=== PATIENT | male | born 1960 | race Caucasian/White ===

== ENCOUNTER 2017-05-20 01:14 | Inpatient (IN) | payer OTHER ==
[~2017-05-20] VITALS: Ht 179.1 cm; Wt 104.3 kg
--- NOTE | ~2017-05-20 | CO ---
Unit #: [id number] #: [id number] Patient: CHANTELLE ANDREWS [id number] [facility] [address] [facility]. [place], [place] [address] [id number] MR#: [id number] NAME: CHANTELLE ANDREWS. ROOM: 553 Age: 56 Sex: M Admission Date: 05/20/2017 : 1960 Attending Physician: Marvin Grijalva M.D. Primary Care Physician: Brian Alexander M.D. Consultation Date: 05/20/2017 CONSULTATION REPORT His hospice social worker, he states, is now Dr. Hector barry at [facility]. REASON FOR CONSULTATION Chest pain. HISTORY OF PRESENT ILLNESS This is a 56-year-old white male with multiple medical issues including ischemic cardiopathy with an EF as low at 30% to 35% and he had a recent PCI and stent in March of 2017 at [facility]. He also is a diabetic, hypertension, hyperlipidemia, chronic kidney disease, COPD, recently quit smoking and has a left below the knee amputation secondary to nonhealing wounds. According to patient he has a right lower extremity, was getting more red, swollen and painful. He had some recent ulcerations on that extremity. He said he has seen this condition in the past and knew he should come in for further evaluation and management. He has been having complaints of intermittent left anterior chest wall pain. Sometimes it radiates up into the left shoulder. He said he does get a little short of air, lightheaded and weak. He says he has taken a Nitrostat at home and it does ease it off. He says it just lasts for a few minutes. The patient will be admitted for right lower extremity cellulitis, started on antibiotics and also he was found to have a blood sugar of 386. Cardiology has been consulted to assist with evaluation and management. PAST MEDICAL HISTORY 1. Ischemic cardiomyopathy. His last echo here at [facility], 10/2015, showed LVEF of 35% with moderate to severe left ventricular systolic dysfunction and moderate to severe global hypokinesis. 2. 04/10/2017 Lexiscan Cardiolite stress test at [facility] has showed EF of 42% and there showed some medium to large segment and moderate to severe apical mid and basal inferior lateral ischemia. 3. Cardiac cath performed on 04/13/2017, which revealed a circumflex that appears to have a severe stenosis in the distal circumflex at the takeoff of the PLV branch and then has a 40% stenosis between the first and second marginal branch. The LAD has a 50% to 60% stenosis at the diagonal branch and also 30% to 40% stenosis in the mid LAD. The rest of the LAD had luminal irregularities. 4. Status post PCI and drug-eluting stent to the left PLV branch of the circumflex. 5. Hypertension. 6. Hyperlipidemia. 7. Chronic kidney disease. 8. Diabetes mellitus type 2. 9. COPD. Unit #: [id number] #: [id number] Patient: CHANTELLE ANDREWS 10. Intolerant to Brilinta, causes shortness of breath. 11. History of toxic metabolic encephalopathy. 12. Peripheral neuropathy. 13. Left BKA secondary to nonhealing wound, second to diabetes mellitus. 14. Quit smoking about a month ago. PAST SURGICAL HISTORY 1. Below left knee amputation. 2. Colonoscopy. 3. Hand surgery. HOME MEDICATIONS 1. Duloxetine 60 mg p.o. daily. 2. Effient 10 mg p.o. daily. 3. Gabapentin 800 mg p.o. 3 times daily. 4. Mag ox 400 mg p.o. daily. 5. Metoprolol 25 mg p.o. twice daily. 6. Omeprazole 20 mg p.o. daily. 7. Quetiapine 100 mg p.o. at bedtime. 8. Flomax 0.4 mg p.o. daily. 9. Tresiba FlexTouch 38 units subcu daily. 10. Ventolin 1 inhalation p.r.n. for shortness of breath. 11. Xanax 0.5 mg. p.o. twice daily p.r.n. 12. Breo Ellipta 1 puff inhalation twice daily. 13. Amitriptyline 50 mg p.o. twice daily. 14. Aspirin 81 mg daily. 15. Atorvastatin 80 mg p.o. daily. 16. Bumex 2 mg p.o. twice daily. 17. Clonazepam 0.5 mg p.o. twice daily ALLERGIES No known drug allergies. SOCIAL HISTORY The patient lives with his sister. He uses a wheelchair. He has a prosthesis. He quit smoking about a month ago. According to his information he has been smoking most of his adult life. No alcohol except on a rare basis. FAMILY HISTORY Noncontributory. REVIEW OF SYSTEMS See details in HPI. PHYSICAL EXAMINATION GENERAL: The patient is a 56-year-old white male in no acute respiratory disease. He is awake, alert and oriented. VITAL SIGNS: Blood pressure is 158/86, respirations 22, pulse 92, temperature 97.9, O2 sats 97% on room air. NECK: Trachea midline. No thyromegaly, lymphadenopathy. Normal carotid upstrokes. No jugular venous distention. HEART: S1 and S2. Regular rate and rhythm. No clicks, murmurs or rubs. LUNGS: Diminished and otherwise clear. ABDOMEN: Slight obese, soft nontender, positive bowel sounds present. EXTREMITIES: Right pedal pulses are palpable. 1+ pedal edema and noted cellulitis in the left lower extremity with some open ulcerated areas. Unit #: [id number] #: [id number] Patient: CHANTELLE ANDREWS DIAGNOSTIC STUDIES LABORATORY DIAGNOSTIC DATA: Glucose is 386, BUN 39, creatinine 1.8, EGFR 41.2, sodium 132, potassium 5.0, chloride 100, CO2 26, calcium 3.2, total protein 7.4, albumin 2.7, bili total 0.5, AST 19, ALT 20, alk phos is 107. WBC is 8.0, hemoglobin 13.6, hematocrit 40.4, and platelets 194. Initial cardiac enzymes - CK-MB is 7.5, troponin less than 0.05, CK-MB is 5.9, troponin less than 0.5, INR 1.0. Repeat cardiac enzymes - troponin less than 0.03, BNP 609. IMAGING STUDIES: Chest x-ray shows stable cardiomegaly, stable chronic bibasilar scarring and nothing acute. CARDIOLOGY STUDIES: EKG shows sinus rhythm with a first degree AV block, some nonspecific ST-T wave abnormalities in lateral leads, otherwise slightly unremarkable. IMPRESSION 1. Right lower extremity cellulitis. 2. Chest pain, somewhat atypical. 3. History of coronary artery disease, recent PCI and stent to the PLV branch of the left circumflex. 4. History of ischemic cardiomyopathy, EF of 35% on last stress test. On last documentation at [facility] it is 42%. 5. Diabetes mellitus type 2, poorly controlled. 6. Hypertension. 7. Hyperlipidemia. 8. Chronic kidney disease. 9. Chronic obstructive pulmonary disease. 10. Peripheral neuropathy. 11. Left below knee amputation for nonhealing wounds. 12. Recently quit smoking. PLANS 1. Continue to monitor cardiac enzymes and EKG. So far they are negative. His chest pain is intermittent and only lasts a few seconds each episode. He says it is usually waxing and waning. It is somewhat atypical; however, with his multiple medical issues and recent cardiac enzymes, will monitor closely. Will optimize his medications and make sure he continues on his metoprolol, Effient and aspirin and statin and he is on oral Bumex. He does not appear to have any acute congestive heart failure. Will continue on oral medications. Will watch closely his BUN and creatinine. Patient currently is not on an DIEGO inhibitor or ARB for his cardiomyopathy because of his acute on chronic kidney failure. 2. Will obtain some records from [facility], including the last echo and discharge summary. 3. Further recommendation pending per Dr. Cervantes. Thank you very much for allowing us to assist in care. Patient does want to followup with his current hospice social worker at [facility], which according to their records is Dr. Young. Dictated by... Heather XavierPShawnRDavy for Ambreen Cervantes M.D. Unit #: [id number] #: [id number] Patient: CHANTELLE ANDREWS ABDELRAHMAN/jennifer TD: 05/23/2017 05:50 JOB #: [id number] CC: [facility] CONSULTATION REPORT Page 1 of 1 X Machelle Woods APRN CONSULTATION REPORT
--- NOTE | ~2017-05-20 | EKG ---
PATIENT: CHANTELLE ANDREWS UNIT #: [id number] Ventricular Rate: 96 BPM Atrial Rate: 96 BPM P-R Interval: 228 ms QRS Duration: 74 ms Q-T Interval: 368 ms QTC Calculation(Bezet): 464 ms P Merritt: 24 degrees Calculated R Merritt: -18 degrees Calculated T Merritt: 158 degrees Diagnosis Line: Sinus rhythm with 1st degree A-V block Diagnosis Line: ST and T wave abnormality, consider lateral ischemia Diagnosis Line: Prolonged QT Diagnosis Line: Poor data quality Diagnosis Line: Abnormal ECG Diagnosis Line: When compared with ECG of 15-JUN-2016 19:34, Diagnosis Line: Inverted T waves have replaced nonspecific T wave Diagnosis Line: abnormality in Lateral leads Diagnosis Line: Confirmed by CLOVIS GUY MD ([id number]) on 05/21/2017 Diagnosis Line: 8:27:17 AM INTERPRETING MD: BROOKS CHOWDARY
--- NOTE | ~2017-05-20 | CR72 ---
[facility] RADIOLOGY TEXT RESULTS PATIENT: CHANTELLE ANDREWS LOCATION: [place] [address] : [birth year] UNIT #: [id number] AGE: [address]: LÁZARO FERRARIUJ V SEX: M ORDER DR: [id number] [facility] [address] [facility]. [place], [place] [address] [id number] MR#: [id number] Acc #: [id number] NAME: CHANTELLE ANDREWS. : 1960 SEX: M STUDY DATE/TIME: 05/20/2017 1:46 UNIT: JOSIE ROOM: STUDY DESCRIPTION: CR Chest Single View Portable Attending Physician: Ryan Wallace D.O. Ordering Physician: Ryan Wallace D.O. Primary Care Physician: Brian Alexander M.D. MEDICAL IMAGING REPORT This report is preliminary unless electronic signature is present EXAM AP portable chest DATE 05/20/2017 HISTORY Shortness of breath, chest pain, cough and right leg pain since yesterday. Smoking history for years. COMPARISON AP portable chest 06/15/2016. FINDINGS Chronic band-like scarring is present within the lung bases. No acute airspace disease is seen. Stable cardiac enlargement. No pleural effusion or pneumothorax. IMPRESSION 1. Stable chronic bibasilar scarring. 2. Stable cardiomegaly. 3. No acute findings or significant change compared to 06/15/2016. Dictated by... Lynn Rosa M.D. THIS IS AN ELECTRONICALLY VERIFIED REPORT Lynn Rosa M.D. at 05/23/2017 8:41 AM [facility]/matthew TD: 05/20/2017 04:20 JOB #: [id number] [facility] RADIOLOGY TEXT RESULTS PATIENT: CHANTELLE ANDREWS LOCATION: [facility] [address] : 60 UNIT #: [id number] AGE: [address]: CHARITY FERRARI V SEX: M ORDER DR: MEDICAL IMAGING REPORT Page 1 of 1 COPY
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
[~2017-05-20 01:14] MED LIST: ACETAMINOPHEN650 M4 PO; ALBUTEROL17 GM INH; ALDACTONE25 MG PO; AMITRIPTYLINE H25 MG PO; ASPIRIN81 MG PO; ATIVAN0.5 M1 PO; ATIVAN2 MG PO; BACTROBAN22 GM TOP; BUMEX PO; BUSPAR PO; CARVEDILOL25 MG PO; CLOBETASOL PROP30 GM EXT; COREG PO; COREG6.25 MG PO; COZAAR25 MG PO; CYANOCOBALAM1000 MCG PO; DOXYCYCLINE HY100 M3 PO; DULOXETINE HCL60 M1 PO; FINASTERIDE5 MG PO; FLOMAX0.4 M1 PO; FUROSEMIDE40 MG PO; GABAPENTIN800 MG PO; HUMALOG100 U/M2 SUBQ; HYDRALAZINE HCL25 MG PO; LANTUS100 U/ML SUBQ; LANTUS100 UNITS/ SUBQ; LASIX PO; LIPITOR PO; LIPITOR80 MG PO; LISINOPRIL20 MG PO; METOLAZONE5 MG PO; NASALIDE INHALE25 ML; NEURONTIN800 MG PO; OMEPRAZOLE20 M2 PO; PRILOSEC20 M1 PO; QUETIAPINE FUM100 MG PO; SERTRALINE HCL100 M1 PO; SODIUM BICARBO650 MG PO; SODIUM BICARBO650 MG PO/SL; SYMBICORT INH; TRAMADOL HCL50 M2 PO
[2017-05-20 02:38] LABS: BASOPHIL# 0.1 X10e3 (0-0.3); BASOPHIL% 0.9 % (0-2.5); EOSINOPHIL# 0.2 X10e3 (0-0.7); EOSINOPHIL% 2.2 % (0.0-7.0); HEMATOCRIT 40.4 % (38.0-50.0); HEMOGLOBIN 13.6 gm/dL (13.0-16.0); LYMPHOCYTE# 1.5 X10e3 (1.0-3.5); LYMPHOCYTE% 18.4 % (17.0-45.0); MEAN CELL VOLUME 84.6 FL (83-96); MEAN CORPUSCULAR HEMOGLOBIN 28.5 PG (28-34); MEAN CORPUSCULAR HGB CONC 33.7 g/dL (30-36); MEAN PLATELET VOLUME 8.4 FL (6.5-11.5); MONOCYTE# 0.7 X10e3 (0-1.0); MONOCYTE% 8.4 % (3.0-12.0); NEUTROPHIL# 5.6 X10e3 (1.5-7.1); NEUTROPHIL% 70.1 % (40-75); PLATELET COUNT 194 X10e3 (140-420); RED BLOOD COUNT 4.77 X10e (3.90-5.60); RED CELL DISTRIBUTION WIDTH 14.6 % (11.0-15.5)
[2017-05-20 02:39] LABS: DIFF IND NO
[2017-05-20 02:46] LABS: POC - CKMB 7.5 ng/mL (0.0-7.9); POC - TROPONIN <0.05 ng/mL (<=0.05)
[2017-05-20 02:47] LABS: PARTIAL THROMBOPLASTIN TIME 27.5 SECONDS (23.5-31.3); PROTHROMBIN TIME (PATIENT) 10.4 SECONDS (10.0-11.7)
[2017-05-20 02:53] LABS: ALBUMIN SERUM 2.7 g/dL (3.5-5.0); BILIRUBIN,TOTAL 0.5 mg/dL (0.2-2.0); BUN/CREATININE RATIO 21.66; CALCIUM SERUM 8.2 mg/dL (8.4-10.2); CREATININE SERUM 1.8 mg/dL (0.6-1.4); GLOM FILT RATE Estimated 41.2 mL/min (>60); PROTEIN TOTAL SERUM 7.4 g/dL (6.0-8.3)
[2017-05-20 04:32] LABS: POC - CKMB 5.9 ng/mL (0.0-7.9); POC - TROPONIN <0.05 ng/mL (<=0.05)
[2017-05-20 06:18] LABS: URINE SOURCE CLEAN CATCH
[2017-05-20] MEDS ORDERED: ASPIRIN81 M2 PO (06:28)
[2017-05-20] MEDS ORDERED: AMITRIPTYLINE H50 MG PO (06:28)
[2017-05-20] MEDS ORDERED: ATORVASTATIN CA80 MG PO (06:29)
[2017-05-20] MEDS ORDERED: BUMETANIDE2 M1 PO (06:29)
[2017-05-20] MEDS ORDERED: CLONAZEPAM0.5 MG PO (06:30)
[2017-05-20] MEDS ORDERED: DULOXETINE HCL60 M1 PO (06:31)
[2017-05-20] MEDS ORDERED: EFFIENT10 MG PO (06:31)
[2017-05-20] MEDS ORDERED: GABAPENTIN800 MG PO (06:32)
[2017-05-20] MEDS ORDERED: MAG-OX 400400 M1 PO (06:33)
[2017-05-20] MEDS ORDERED: METOPROLOL TART25 MG PO (06:34)
[2017-05-20] MEDS ORDERED: QUETIAPINE FUM100 MG PO (06:35)
[2017-05-20] MEDS ORDERED: OMEPRAZOLE20 M2 PO (06:35)
[2017-05-20] MEDS ORDERED: FLOMAX0.4 M1 PO (06:36)
[2017-05-20] MEDS ORDERED: TRESIBA FL100 UNIT/1 SUBQ (06:38)
[2017-05-20] MEDS ORDERED: ALBUTEROL17 GM INH (06:39)
[2017-05-20] MEDS ORDERED: XANAX0.5 M1 PO (06:41)
[2017-05-20] MEDS ORDERED: BREO ELLIPTA I1 EACH INH (06:42)
[2017-05-20 06:50] LABS: URINE APPEARANCE CLEAR; URINE BILIRUBIN NEG (NEG); URINE BLOOD 1+ (NEG); URINE COLOR YELLOW; URINE GLUCOSE >1000 MG/DL (NEG); URINE KETONE NEG (NEG); URINE LEUKOCYTE ESTERASE NEG (NEG); URINE NITRATE NEG (NEG); URINE PROTEIN 3+ (NEG); URINE SPECIFIC GRAVITY 1.026 (1.003-1.035); URINE UROBILINOGEN 0.2 MG/DL (NEG)
[2017-05-20 06:52] LABS: URINE BACTERIA AUWI NEG (NEGATIVE); URINE SQUAMOUS EPITHELIAL CELL NONE SEEN /[HPF]; UWBCS1 AUWI 0-2 (0-5)
[2017-05-20 06:53] LABS: CULTURE INDICATED? NO
[2017-05-20 11:17] LABS: %MB 3.8 % (0.0-4.0); MB 4.5 ng/ml
== END 2017-05-20 13:17 | disposition left against medical advice (07) | DRG 603 ==
LOC: CED 01:14 → CEDOF 05:50 → CED 05:58 → CEDOF 05:58 → C5B 12:14 → CEDOF 12:14 → C5B 13:17
PROVIDERS: Emergency Medicine; Internal Medicine
DX: L03.115 Cellulitis of right lower limb (principal); E11.22 Type 2 diabetes mellitus with diabetic chronic kidney disease; E11.42 Type 2 diabetes mellitus with diabetic polyneuropathy; R07.9 Chest pain, unspecified; E11.65 Type 2 diabetes mellitus with hyperglycemia; I25.10 Atherosclerotic heart disease of native coronary artery without angina pectoris; E78.5 Hyperlipidemia, unspecified; I12.9 Hypertensive chronic kidney disease with stage 1 through stage 4 chronic kidney disease, or unspecified chronic kidney disease; N18.9 Chronic kidney disease, unspecified; N40.0 Benign prostatic hyperplasia without lower urinary tract symptoms; J44.9 Chronic obstructive pulmonary disease, unspecified; Z89.512 Acquired absence of left leg below knee; Z79.82 Long term (current) use of aspirin; I25.5 Ischemic cardiomyopathy; Z87.891 Personal history of nicotine dependence; Z79.84 Long term (current) use of oral hypoglycemic drugs
CPT/HCPCS: 36415; 71010; 80053; 81003; 82550; 82553; 82947; 83880; 84484; 85025; 85610; 85730; 87040; 93005; 99285; J0696; J1815; J2543